=== PATIENT | female | born 1945 | race African-American/Black ===

== ENCOUNTER 2025-02-26 14:55 | Emergency (ER) | payer MEDICARE, MEDICAID ==
[~2025-02-26] VITALS: Ht 172.7 cm; Wt 73.0 kg
[2025-02-26 15:16] VITALS: O2SAT 98
[2025-02-26] MEDS: ACETAMINOPHEN 325MG TABLET PO ONE (18:13)
[2025-02-26] MEDS ORDERED: CYCL10TA21 MT (19:32)
[2025-02-26 19:54] VITALS: BP 156/89; PULSE 51; RESP 16; TEMP 36.5; O2SAT 100
== END 2025-02-26 19:59 | disposition home or self-care (01) ==
LOC: ER 14:55
DX: S90.32XA Contusion of left foot, initial encounter (principal); I10 Essential (primary) hypertension; Z79.899 Other long term (current) drug therapy; Z98.890 Other specified postprocedural states; Z91.041 Radiographic dye allergy status; Z90.49 Acquired absence of other specified parts of digestive tract; Z88.8 Allergy status to other drugs, medicaments and biological substances; Z88.1 Allergy status to other antibiotic agents; Z88.0 Allergy status to penicillin; X58.XXXA Exposure to other specified factors, initial encounter; Y93.89 Activity, other specified; Y92.89 Other specified places as the place of occurrence of the external cause; Y99.8 Other external cause status
CPT/HCPCS: 72100; 73560; 73590; 73620; 99284